=== PATIENT | male | born 1980 | race Hispanic/Latino ===

== ENCOUNTER 2020-10-11 23:58 | Emergency (ER) | payer MEDICARE ==
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
== END 2020-10-12 01:05 | disposition home or self-care (01) ==
LOC: ED 23:58
DX: Z71.1 Person with feared health complaint in whom no diagnosis is made (principal)